=== PATIENT | male | born 1945 | race Caucasian/White ===

== ENCOUNTER 2022-07-29 08:00 | Outpatient (CLI) | payer OTHER | END 2022-07-29 17:00 | disposition home or self-care (01) | LOC: SLB 08:00 → EDSTATUS 08-04 07:30 | PROVIDERS: ATTEND Surgery | DX: U07.1 COVID-19 (principal); K42.9 Umbilical hernia without obstruction or gangrene | CPT/HCPCS: 87081; 36415; U0003 ==

== ENCOUNTER 2022-09-01 07:41 | Day surgery (SDC) | payer OTHER ==
[~2022-09-01] VITALS: Ht 167.6 cm; Wt 99.8 kg
[~2022-09-01 07:41] MED LIST: CEFAZOLIN SOD 2 GM in D5W 50 ML IV ONE
[2022-09-01] MEDS ORDERED: GLYCOPYRROLATE 0.2 MG/ML VIAL ONE (10:15)
[2022-09-01] MEDS ORDERED: LR 1,000 ML IV.SOLN IV ONE (10:15)
[2022-09-01] MEDS ORDERED: SEVOFLURANE 15 MIN GAS INH ONE (10:15)
[2022-09-01] MEDS ORDERED: LIDOCAINE 2%, 20 ML MDV ONE (10:15)
[2022-09-01] MEDS ORDERED: PHENYLEPHRINE HCL 10 MG/ML VIAL (NEOSYNEPHRINE) ONE (10:15)
[2022-09-01] MEDS ORDERED: ETOMIDATE 20 MG/ 10 ML VIAL (AMIDATE) ONE (10:15)
[2022-09-01] MEDS ORDERED: METOCLOPRAMIDE HCL 10 MG/2 ML VIAL ONE (10:15)
[2022-09-01] MEDS ORDERED: ONDANSETRON HCL 4 MG/2 ML VIAL ONE (10:15)
[2022-09-01] MEDS ORDERED: ROCURONIUM BROMIDE 10 MG/ML (ZEMURON) ONE (10:15)
[2022-09-01] MEDS ORDERED: ePHEDrine sulfate 50 MG/ML VIAL ONE (10:15)
[2022-09-01] MEDS ORDERED: fentaNYL CITRATE/PF 100 MCG/2 ML AMP ONE (10:15)
[2022-09-01] MEDS ORDERED: PROPOFOL 200MG/ 20ML VIAL (DIPRIVAN) IV ONE (10:15)
[2022-09-01] MEDS ORDERED: NS IRRIG SOLN 1000 ML IR ONE (10:15)
[2022-09-01] MEDS ORDERED: ACETAMINOPHEN I.V. 1000 MG 100 ML IV ONE (10:50)
[2022-09-01] MEDS ORDERED: LR 1,000 ML IV SCH (11:00)
[2022-09-01] MEDS ORDERED: ONDANSETRON HCL 4 MG/2 ML VIAL IVP PRN (11:00)
[2022-09-01] MEDS ORDERED: HYDROmorphone 1 MG/ML INJ. CARTRIDGE IVP PRN (11:00)
[2022-09-01] MEDS ORDERED: HYDROmorphone 2 MG/ML VIAL IVP PRN (11:00)
[2022-09-01] MEDS ORDERED: METOCLOPRAMIDE HCL 10 MG/2 ML VIAL IVP PRN (12:15)
[2022-09-01] MEDS ORDERED: HYDROcodone/ACETAMIN 5-325 MG TAB (NORCO/ VICODIN) PO PRN (12:15)
[2022-09-01 14:56] VITALS: BP_SYST 133
== END 2022-09-01 13:50 | disposition home or self-care (01) ==
LOC: SDS 07:41
PROVIDERS: ATTEND Surgery
DX: K42.9 Umbilical hernia without obstruction or gangrene (principal); K43.9 Ventral hernia without obstruction or gangrene; E11.9 Type 2 diabetes mellitus without complications; E66.01 Morbid (severe) obesity due to excess calories; Z68.35 Body mass index [BMI] 35.0-35.9, adult; Z79.899 Other long term (current) drug therapy; Z20.822 Contact with and (suspected) exposure to COVID-19
CPT/HCPCS: 87081 ×2; 49591; 82962; 36415; 88302; 87426; J0690; J3490 ×2; J2001; J2765; J2405; J2370; J2704; J3010; J7060; J7120; C1781; J0131